=== PATIENT | female | born 1970 | race Two or more races ===

== ENCOUNTER 2021-02-12 14:08 | Emergency (ER) | payer BC, OTHER ==
[~2021-02-12] VITALS: Ht 152.4 cm; Wt 59.0 kg
[2021-02-12 14:14] VITALS: BP 98/52
--- NOTE | 2021-02-12 14:19 | NUR ---
PT TAKEN TO BED 7 VIA [facility], PT PLACED ON V/S MONITOR AND EKG TAKEN. EKG READS NSR AT 53 HR
[2021-02-12] MEDS ORDERED: NACL 0.9% 1,000 ML IV ONE (14:30)
--- NOTE | 2021-02-12 14:36 | NUR ---
LABS DRAWN THROUGH 20G IV AND SENT TO LAB AT THIS TIME.
--- NOTE | 2021-02-12 14:38 | NUR ---
X-Ray at bedside.
[2021-02-12 14:46] LABS: BASOPHILS % (AUTO) 0.6 % (0.0-2.0); EOSINOPHILS # (AUTO) 0.3 K/uL (0-0.4); EOSINOPHILS % (AUTO) 4.8 % (0.0-4.0); HEMOGLOBIN 12.6 g/dL (12.0-16.0); LYMPHOCYTES # (AUTO) 2.1 K/uL (2.5-16.5); LYMPHOCYTES % (AUTO) 36.1 % (20.5-51.1); MEAN CORPUSCULAR HEMOGLOBIN 28 pg (27-31); MEAN CORPUSCULAR HGB CONC 34 g/dL (33-37); MONOCYTES # (AUTO) 0.3 K/uL (0.8-1.0); NEUTROPHILS # (AUTO) 3.1 K/uL (1.8-7.7); NEUTROPHILS % (AUTO) 53.5 % (42.2-75.2); PLATELET COUNT (AUTO) 242 K/uL (140-450); RED BLOOD CELL COUNT(AUTO) 4.57 MIL/uL (4.20-5.40); RED CELL DISTRIBUTION WIDTH 13.3 % (11.6-13.7); WHITE BLOOD COUNT (AUTO) 5.9 K/uL (4.8-10.8)
--- NOTE | 2021-02-12 14:47 | NUR ---
50 Y/O F BIBA, PT STTES SHE WAS DRIVING AND HAD NEW ONSET OF EPIGASTRIC PAIN THAT WAS RADIATING UP TO NECK AND DOWN TO LLQ ABD AREA. DENIES DYSURIA, HEMATURIA, VOMITING OR DIARRHEA. SKIN IS PINK/WARM/DRY; AAOX4 WITH EVEN AND STEADY GAIT; LUNGS CLEAR BL; HR EVEN AND REGULAR; PT DENIES ANY FEVER OR COUGH AT THIS TIME; PATIENT STATES PAIN OF 9/10 AT THIS TIME; VSS; PATIENT POSITIONED FOR COMFORT; HOB ELEVATED; BEDRAILS UP X2; BED DOWN. ER MD MADE AWARE OF PT STATUS. PMH: GASTRITIS, PREDIABETIC ALLERGY: MORPHINE (SOB) MED: NITRO 0.4MG AND ASPIRIN 324MG ENROUTE
[2021-02-12 14:59] LABS: ALBUMIN 3.9 g/dL (3.4-5.0); ANION GAP 13.1 (8-16); CARBON DIOXIDE 25.4 mmol/L (21-32); CREATININE 0.6 mg/dL (0.6-1.3); POTASSIUM 3.5 mmol/L (3.5-5.1); TOTAL BILIRUBIN 0.6 mg/dL (0.0-1.0)
[2021-02-12] MEDS ORDERED: DICYCLOMINE HCL LIQUID 20 MG, ALUMINUM HYD/MAG/SIMETHICONE 30 ML, LIDOCAINE VISCOUS 2% ... PO ONE ×3 (15:25)
[2021-02-12] MEDS ORDERED: KETOROLAC 15 MG/ML VIAL IVP ONE (15:25)
[2021-02-12] MEDS ORDERED: DICYCLOMINE HCL LIQUID 10 MG/5 ML UDC ONE (15:27)
[2021-02-12] MEDS ORDERED: ALUMINUM HYD/MAG/SIMETHICONE 30 ML UDC ONE (15:27)
[2021-02-12] MEDS ORDERED: BEN10 PO (16:45)
[2021-02-12 18:35] VITALS: BP 96/53
--- NOTE | 2021-02-12 18:46 | NUR ---
Patient discharged with v/s stable. Written and verbal after care instructions ABOUT ABDOMINAL PAIN given and explained. Patient alert, oriented and verbalized understanding of instructions. Ambulatory with steady gait. All questions addressed prior to discharge. ID band removed. Patient advised to follow up with PMD. Rx of BENTYL given. Patient educated on indication of medication including possible reaction and side effects. Opportunity to ask questions provided and answered.
== END 2021-02-12 18:46 | disposition home or self-care (01) ==
LOC: MED 14:08
DX: R10.9 Unspecified abdominal pain (principal); R07.9 Chest pain, unspecified; Z88.5 Allergy status to narcotic agent; Z79.899 Other long term (current) drug therapy; Z90.49 Acquired absence of other specified parts of digestive tract
CPT/HCPCS: 36415; 71045; 74176; 80053; 83690; 84484; 85025; 93005; 96361; 96374; 99285; J1885; J7030; Q0092

== ENCOUNTER 2021-02-22 14:58 | Emergency (ER) | payer OTHER ==
[~2021-02-22] VITALS: Ht 152.4 cm; Wt 56.7 kg
[~2021-02-22 14:58] MED LIST: BEN10 PO
[2021-02-22 15:28] VITALS: BP 122/74
--- NOTE | 2021-02-22 15:39 | NUR ---
PT AMB TO BED 5.
[2021-02-22] MEDS ORDERED: MAGNESIUM CITRATE 300 ML BTL PO ONE (15:50)
--- NOTE | 2021-02-22 16:50 | NUR ---
pt c/o constipation x5 days.
[2021-02-22] MEDS ORDERED: PEG4000P3 PO (17:49)
--- NOTE | 2021-02-22 17:53 | NUR ---
pt verbalizes dc instructions no acute distress noted. stable on dc
== END 2021-02-22 17:53 | disposition home or self-care (01) ==
LOC: MED 14:58
DX: O72.1 Other immediate postpartum hemorrhage (principal)
CPT/HCPCS: 74018; 81025; 99283; Q0092

== ENCOUNTER 2022-05-28 12:56 | Emergency (ER) | payer OTHER ==
[~2022-05-28] VITALS: Ht 152.4 cm; Wt 59.4 kg
[~2022-05-28 12:56] MED LIST changes: +PEG4000P3 PO
[2022-05-28 13:08] VITALS: BP 145/90
--- NOTE | 2022-05-28 13:38 | NUR ---
PT AMBULATED TO ER BED 5
--- NOTE | 2022-05-28 14:05 | NUR ---
pt swabbed for covid([place]) and strep. walked and handed to lab
--- NOTE | 2022-05-28 14:15 | NUR ---
52YO FEMALE PT C/O SORE THROAT AND COUGH [id number]. SHARP CHEST PAIN ON COUGH. MOIST NON PRODUCTIVE COUGH PRESENT. DENIES RELIEF AFTER ROBITUSSIN OR COUGH DROPS. THROAT PRESENTS REDDENED W/ MILD SWELLING. +NAUSEA. DENIES V/D, SOB OR ANYONE SICK AT HOME. PT AAOX4, GIOVANY LUNG SOUNDS. HOB POSITIONED PER COMFORT HX: ANXIETY ALLERGIES: MORPHINE
--- NOTE | 2022-05-28 14:20 | NUR ---
52/F PRESENTS TO ED WITH C/O ABDOMINAL PAIN AND SORE THROAT X1 WEEK, WAS SEEN AT [facility] AND GIVEN RX OF COUGH MEDS WITH NO RELIEF.
[2022-05-28 14:30] LABS: APPEARANCE,URINE CLEAR (CLEAR); BILIRUBIN,URINE NEGATIVE (NEGATIVE); BLOOD, URINE TRACE-I (NEGATIVE); COLOR,URINE YELLOW (YELLOW); LEUKOCYTE ESTERASE ,URINE NEGATIVE (NEGATIVE); NITRITE, URINE NEGATIVE (NEGATIVE); UGLUCOSE 1+ (NEGATIVE)
[2022-05-28] MEDS ORDERED: ONDANSETRON 4 MG ODT PO ONE (14:35)
[2022-05-28] MEDS ORDERED: KETOROLAC 60 MG/2 ML VIAL IM ONE (14:35)
[2022-05-28 14:44] LABS: WBC,URINE 0-5 /HPF (0-5)
[2022-05-28] MEDS ORDERED: PRED20TA5 PO (15:07)
[2022-05-28] MEDS ORDERED: ONDA8TAB87 PO (15:07)
[2022-05-28 15:13] VITALS: BP 138/89
--- NOTE | 2022-05-28 15:13 | NUR ---
Patient discharged with v/s stable. Written and verbal after care instructions FOR COUGH AND SORE THROAT given and explained. Patient alert, oriented and verbalized understanding of instructions. Ambulatory with steady gait. All questions addressed prior to discharge. ID band removed. Patient advised to follow up with PMD. Rx of ZOFRAN AND DELTASONE given.. Opportunity to ask questions provided and answered.
--- NOTE | 2022-05-28 15:14 | NUR ---
The patient's care was reviewed and supervised by Margaret Gilbert RN.
== END 2022-05-28 15:13 | disposition home or self-care (01) ==
LOC: MED 12:56
DX: J02.9 Acute pharyngitis, unspecified (principal); Z20.822 Contact with and (suspected) exposure to COVID-19; K21.9 Gastro-esophageal reflux disease without esophagitis; Z88.5 Allergy status to narcotic agent
CPT/HCPCS: 81001; 81025; 87081; 87426; 96372; 99283; J1885; Q0162